=== PATIENT | female | born 2000 | race Caucasian/White ===

== ENCOUNTER 2019-04-27 16:46 | Emergency (ER) | payer SELFPAY ==
[~2019-04-27] VITALS: Ht 154.9 cm; Wt 54.5 kg
[2019-04-27 17:24] VITALS: BP 129/73; TEMP 98.1
[2019-04-27] MEDS ORDERED: CEPHALEXIN500 M1 PO (19:38)
[2019-04-27] MEDS ORDERED: BACTRIM DS 8001 TAB PO (19:38)
[2019-04-27 19:52] VITALS: PULSE 79
== END 2019-04-27 19:52 | disposition home or self-care (01) ==
LOC: COL.ER 16:46
DX: L03.115 Cellulitis of right lower limb (principal)